=== PATIENT | female | born 1930 | race Caucasian/White ===

== ENCOUNTER → 2018-11-16 | Outpatient (CLI) | payer MEDICARE ==
[~2018-11-16] MED LIST: AMLO-150 PO; ASPI-496 PO; BENA1TAB10 PO; CALC600T4 PO; EZET10TA18 PO; GLUC100015 PO; NIAC10002 PO; NIAC500T4 PO
== END | disposition home or self-care (01) ==
LOC: CFH 09:47
PROVIDERS: ATTEND Physician Assistant
DX: I08.0 Rheumatic disorders of both mitral and aortic valves (principal); E78.5 Hyperlipidemia, unspecified; I10 Essential (primary) hypertension
CPT/HCPCS: 93306